=== PATIENT | male | born 1990 | race Caucasian/White ===

== ENCOUNTER 2021-02-14 17:44 | Emergency (ER) | payer MEDICAID, SELFPAY ==
[2021-02-14 17:58] VITALS: BP 131/80; PULSE 92; RESP 20; TEMP 36.8; O2SAT 100
--- NOTE | 2021-02-14 20:07 | ED.GENADULT ---
HPI - General Adult General Chief complaint: Unspecified Stated complaint: blood in semen Time Seen by Provider: 02/14/21 19:33 History of Present Illness HPI narrative: 30-year-old male presents to the emergency department for evaluation of blood in his semen. Patient states over the last few weeks four times he has had blood in his semen. Patient does report some difficulty starting urination. Patient denies any incontinence of stool. Patient is sexually active. Patient denies any pain with urination. Patient denies any other penile discharge Related Data Allergies Allergy/AdvReac Type Severity Reaction Status Date / Time cefaclor [From [facility]] Allergy Hives Verified 02/14/21 19:24 Sulfa (Sulfonamide Allergy Hives Verified 02/14/21 19:24 Antibiotics) Review of Systems Review of Systems: CONSTITUTIONAL: Denies fever, chills, or sweats. EYES: Denies visual changes, redness, or discharge. ENT: Denies rhinorrhea, congestion, sore throat, or otalgia. CARDIOVASCULAR: Denies chest pain, palpitations, or edema. RESPIRATORY: Denies cough or dyspnea. GASTROINTESTINAL: Denies abdominal pain, nausea, vomiting, or diarrhea. GENITOURINARY: Hematospermia SKIN: Denies rash or itching. MUSCULOSKELETAL: Denies back pain, joint pain, or myalgia. NEUROLOGIC: Denies headache, numbness, or weakness. PSYCHIATRIC: Denies anxiety or depression. Exam Narrative: APPEARANCE: Well appearing, no pain in distress, well-nourished. HEAD: normocephalic, atraumatic. EYES: PERRLA/EOMI, conjunctivae clear. NOSE: Normal no drainage EARS:TMS clear with good light reflex. THROAT: Pharynx clear, no exudate. NECK: Supple. No adenopathy, no masses. RESPIRATORY: Airway patent, respirations nonlabored. Clear to auscultation bilaterally, no rales, rhonchi, wheezing. CARDIOVASCULAR: Regular rate and rhythm without murmurs rubs or gallops. ABDOMINAL: Soft, nondistended, normal bowel sounds MUSCULOSKELETAL: Moves all extremities. Strength/ROM intact, No edema, No calf tenderness. Genitourinary: Normal penis and testicular exam. No tenderness, no swelling, NEURO: Alert. Cranial nerves II through XII intact. Good gait. Good coordination SKIN: Warm, dry. Normal Color PSYCHIATRIC: Normal affect/mood. Course Vital Signs Vital signs: Vital Signs Temperature 98.2 F 02/14/21 17:58 Pulse Rate 92 02/14/21 17:58 Respiratory Rate 20 02/14/21 17:58 Blood Pressure 131/80 02/14/21 17:58 Pulse Oximetry 100 02/14/21 17:58 Temperature 98.2 F 02/14/21 17:58 Pulse Rate 92 02/14/21 17:58 Respiratory Rate 20 02/14/21 17:58 Blood Pressure 131/80 02/14/21 17:58 Pulse Oximetry 100 02/14/21 17:58 Medical Decision Making MDM Narrative Medical decision making narrative: Patient has a benign abdominal exam. UA is well-appearing. Suspect prostatitis. GC chlamydia is pending off of the urine. Treating patient with Cipro for prostatitis. Patient was updated on the treatment plan and the importance having follow-up with a primary care physician and ultimately with urology. Patient also educated on reasons to return to the emergency department. All questions concerns were addressed. Patient was in no distress at time of discharge from the emergency department. Differential Diagnosis Differential Diagnosis: Prostatitis, STI, UTI Vital Signs Vital Signs: Vital Signs Temperature 98.2 F 02/14/21 17:58 Pulse Rate 92 02/14/21 17:58 Respiratory Rate 20 02/14/21 17:58 Blood Pressure 131/80 02/14/21 17:58 Pulse Oximetry 100 02/14/21 17:58 Temperature 98.2 F 02/14/21 17:58 Pulse Rate 92 02/14/21 17:58 Respiratory Rate 20 02/14/21 17:58 Blood Pressure 131/80 02/14/21 17:58 Pulse Oximetry 100 02/14/21 17:58 Lab Data Lab results reviewed: Yes I reviewed the patient's lab results. Labs: Lab Results 02/14/21 02/14/21 Range/Units 20:17 20:22 Urine Color Yellow (Yellow) Urine Appearance Clear
[2021-02-14] MEDS: CIPROFLOXACIN 500 MG TAB PO (20:23)
[2021-02-14 20:37] LABS: Add Urine Microscopic? NO; Appearance Urine Clear (Clear); Bilirubin Urine Negative (Negative); Blood Urine Negative (Negative); Color Urine Yellow (Yellow); Glucose Urine UA Negative (Negative); Ketones Urine Negative (Negative); Leukocyte Esterase Ur Negative LEU/UL (Negative); Nitrate Urine Negative (Negative); Protein Urine Negative (Negative); Specific Grav Ur 1.016 (1.001-1.035); Urobilinogen Urine Negative mg/dL (<2.0)
== END 2021-02-14 21:12 | disposition home or self-care (01) ==
PROVIDERS: Emergency Provider Emergency Medicine
DX: R36.1 Hematospermia (principal); N41.9 Inflammatory disease of prostate, unspecified
CPT/HCPCS: 81003; 87491; 87591; 99283; A9270

== ENCOUNTER 2021-03-04 18:24 | Emergency (ER) | payer MEDICAID, SELFPAY ==
--- NOTE | ~2021-03-04 | CT_ITS ---
EXAMINATION: CT abdomen pelvis w con DATE: 03/04/2021 23:22 INDICATION: Low abdominal pain. TECHNIQUE: Computed tomography (CT) of the abdomen and pelvis was performed with 100 mL Omnipaque 350 intravenous contrast. Automated exposure control and iterative reconstruction technique were employe d. The dose-length product was 244.23 mGy-cm. COMPARISON: None. FINDINGS: The visualized portions of the lung bases are clear without pneumonia or pleural effusion. The heart size is normal. No pleural effusion. The liver, gallbladder, spleen, pancreas, and adrenal glands are normal. There are cysts in the kidneys measuring up to 2.4 cm on the right. There are no d ilated loops of bowel. There are changes of appendectomy. There are no pathologically enlarged lymph nodes. There is no free intraperitoneal fluid. There is an old healed fracture of right ischial tuber osity. IMPRESSION: 1. No etiology for the patient's symptoms. Reviewed, dictated and finalized at location A. MICIST
[2021-03-04 18:27] VITALS: BP 135/77; PULSE 116; RESP 16; TEMP 36.4; O2SAT 100
[2021-03-04 21:00] LABS: Basophils Absolute Auto 0.1 K/mm3 (0.0-0.1); Basophils Percent Auto 0.8 % (0.2-1.2); Eosinophils Absolute Auto 0.2 K/mm3 (0-0.3); Eosinophils Percent Auto 1.5 % (0-4.4); Hematocrit 41.3 % (42.0-52.0); Hemoglobin 13.8 g/dL (14.0-18.0); Immature Granulocyte Absolute 0.05 K/mm3 (0.00-0.031); Immature Granulocyte Percent A 0.4 % (0-0.5); Lymphocytes Absolute Auto 2.29 K/mm3 (0.9-3.2); Lymphocytes Percent Auto 20.5 % (18.3-44.2); Mean Corpuscular HGB Conc 33.4 g/dl (32-36); Mean Corpuscular Hemoglobin 29.2 pg (26-34); Mean Corpuscular Volume 87.5 fl (80-100); Mean Platelet Volume 9.7 fl (7.4-10.4); Monocytes Absolute Auto 0.9 K/mm3 (0.1-0.6); Monocytes Percent Auto 8.3 % (2.6-8.5); Neutrophils Absolute Auto 7.7 K/mm3 (1.3-6.7); Neutrophils Percent Auto 68.5 % (45.5-73.1); Platelet Count Result 228 k/mm3 (150-375); Red Blood Count 4.72 M/mm3 (4.6-6.20); Red Cell Distribution Width 13.6 % (11.5-14.5); White Blood Count 11.2 K/mm3 (4.5-10.0)
--- NOTE | 2021-03-04 21:29 | ED.MALEGU ---
HPI - Male Genitourinary General Chief complaint: Urogenital-Male Stated complaint: fever, prostatitis Time Seen by Provider: 03/04/21 20:57 Source: patient, RN notes reviewed and old records reviewed Mode of arrival: ambulatory Limitations: no limitations History of Present Illness HPI Narrative: This is a 30 year old male who presents for evaluation of difficulty urinating and lower abdominal pressure. He was evaluated in ER 18 days ago for same complaint. He was discharge home with 1 week of Cipro and diagnosis of prostatitis. He states he noticed that he started developing fever 1 week ago. He reports having fever of 101F today at 2 pm, and he took ibuprofen with Tylenol at 3 pm. He has continued to have lower abdominal pain and pressure. He also reports inconsistent urination. He denies nausea and vomiting. He also denies back pain. He states he had penile discharge 18 days ago but that resolved. Related Data Home Medications Medication Instructions Recorded Confirmed diazepam TID 03/04/21 quetiapine 03/04/21 zolpidem 03/04/21 Allergies Allergy/AdvReac Type Severity Reaction Status Date / Time cefaclor [From [facility]] Allergy Hives Verified 03/04/21 21:55 Sulfa (Sulfonamide Allergy Hives Verified 03/04/21 21:55 Antibiotics) Review of Systems Review of Systems: All systems reviewed & are unremarkable except as noted in HPI and below PMFSH Surgical History Surgical History (Updated 03/05/21 @ 00:43 by Ashley Walters MD) History of appendectomy Social History Social History (Updated 03/05/21 @ 00:43 by Ashley Walters MD) Smoking status: Never smoker Exam Const: General: no acute distress and alert HENMT: Head: normocephalic and atraumatic Face and sinus: face symmetric Mouth: Yes Normal oral and palatal mucosa present, Yes lip normal, Yes oropharynx normal and Yes moist mucous membranes Eyes: EOM: EOMs intact bilaterally Chest: Chest palpation & inspection: normal inspection of the chest Resp: Effort & Inspection: normal respiratory effort and no retractions Auscultation: clear to auscultation bilaterally Cardio: Rate: regular rate Rhythm: regular rhythm Heart sounds: no murmurs GI: GI Palp: Yes Soft to palpation, Yes Tenderness to palpation present (GI) (suprapubic), No Guarding due to palpation present (GI) and No Rigid due to palpation Auscultation: normal bowel sounds : General: Yes no CVA tenderness Penis: Yes circumcised Scrotum: scrotum normal Testes: no testicular tenderness Back/Spine/Pelvis: Back: no CVA tenderness Skin: General skin exam: normal color Rashes: no rashes Neuro: General: patient oriented x3 and moves all extremities Cranial nerves: Yes Nystagmus not present Course Reevaluation(s) Reevaluation #1: I discussed with patient that even though cT is unremarkable he will be started on longer course for prostatitis and he will need to follow up with urologist. Date: 03/05/21 Time: 00:44 Vital Signs Vital signs: Vital Signs Temperature 97.5 F L 03/04/21 18:27 Pulse Rate 116 H 03/04/21 18:27 Respiratory Rate 16 03/04/21 18:27 Blood Pressure 135/77 03/04/21 18:27 Pulse Oximetry 100 03/04/21 18:27 Temperature 97.5 F L 03/04/21 18:27 Pulse Rate 73 03/05/21 00:08 Respiratory Rate 17 03/05/21 00:08 Blood Pressure 119/75 03/05/21 00:08 Pulse Oximetry 100 03/05/21 00:08 MDM - Male Genitourinary Lab Data Attestation: I reviewed the patient's lab results. Result diagrams: 03/04/21 20:52 03/04/21 21:49 Labs: Lab Results 03/04/21 03/04/21 03/04/21 Range/Units 20:52 21:49 21:49 WBC 11.2 H (4.5-10.0) K/mm3 RBC 4.72 (4.6-6.20) M/mm3 Hgb 13.8 L (14.0-18.0) g/dL Hct 41.3 L (42.0-52.0) % MCV 87.5 (80-100) fl MCH 29.2 (26-34) pg MCHC 33.4 (32-36) g/dl RDW 13.6 (11.5-14.5) % Plt Count 228 (150-375) k/mm3 MPV 9.7 (7
[2021-03-04 21:58] VITALS: BP 117/82; PULSE 81; RESP 18; O2SAT 100
[2021-03-04 22:01] LABS: Add Urine Microscopic? NO; Appearance Urine Clear (Clear); Bilirubin Urine Negative (Negative); Blood Urine Negative (Negative); Color Urine Yellow (Yellow); Glucose Urine UA Negative (Negative); Ketones Urine Negative (Negative); Leukocyte Esterase Ur Negative LEU/UL (Negative); Nitrate Urine Negative (Negative); Protein Urine Negative (Negative); Specific Grav Ur 1.017 (1.001-1.035); Urobilinogen Urine Negative mg/dL (<2.0)
[2021-03-04 22:10] LABS: Alanine Aminotransferase 17 U/L (4-50); Albumin Level 4.2 g/dL (3.5-5.1); Alkaline Phosphatase 46 U/L (38-126); Anion Gap 8 mmol/L (8-16); Aspartate Amino Transferase 25 U/L (17-59); Bilirubin,Total 0.4 mg/dL (0.2-1.3); Blood Urea Nitrogen 8 mg/dL (9-20); Calcium 8.7 mg/dL (8.4-10.2); Carbon Dioxide 26 mmol/L (22-30); Chloride 103 mmol/L (98-107); Estimated Glomerular Filt Rate > 60; Glucose 100 mg/dL (65-110); Potassium 3.6 mmol/L (3.4-5.0); Sodium 137 mmol/L (137-145)
--- NOTE | 2021-03-04 23:20 | PC.NURSE ---
Pt to CT scan via w/c.
[2021-03-05] MEDS: DOXYCYCLINE HYCLATE 100 MG TABLET PO (00:05)
[2021-03-05] MEDS: CIPROFLOXACIN 400 MG/D5W 200ML 200 ML 200 MG IVPB (00:06)
[2021-03-05 00:08] VITALS: BP 119/75; PULSE 73; RESP 17; O2SAT 100
== END 2021-03-05 00:58 | disposition home or self-care (01) ==
PROVIDERS: Emergency Medicine; Emergency Provider General Practice
DX: N41.9 Inflammatory disease of prostate, unspecified (principal)
CPT/HCPCS: 36415; 74177; 80053; 81003; 85025; 87086; 96365; 99284; A9270; J0744; Q9967

== ENCOUNTER 2023-08-14 12:13 | Emergency (ER) | payer BC, SELFPAY ==
[2023-08-14] VITALS (19 sets, daily range): BP systolic 116–121; BP diastolic 80–94; PULSE 81–109; RESP 12–22; TEMP 36.9; O2SAT 93–100
--- NOTE | ~2023-08-14 | XR_ITS ---
EXAMINATION: XR chest 2V DATE: 08/14/2023 12:47 INDICATION: Chest pain and left-sided tingling and shortness of breath TECHNIQUE: frontal and lateral views of the chest were obtained. COMPARISON: None FINDINGS: The lungs are clear with no focal airspace opacities, pulmonary edema, pleural effusion or pneumothor ax. The cardiomediastinal silhouette is normal. Visualized bones and soft tissues are unremarkable. IMPRESSION: 1. No acute cardiopulmonary disease. Reviewed, dictated and finalized at location A.
--- NOTE | 2023-08-14 12:18 | ECG_ITS ---
Test Date: 2023-08-14 12:21:37 Measurements Intervals [place] Rate: 105 P: 49 IA: 148 QRS: 41 QRSD: 97 T: 49 QT: 313 QTc: 414 Interpretive Statements SINUS TACHYCARDIA ABNORMAL RHYTHM ECG No previous ECG available for comparison Electronically Signed On 08-14-2023 16:18:32 CDT by Carlos Hernández M.D.
[2023-08-14 12:44] LABS: Basophils Absolute Auto 0.1 K/mm3 (0.0-0.1); Basophils Percent Auto 0.5 % (0.2-1.2); Eosinophils Percent Auto 0.1 % (0-4.4); Hematocrit 44.7 % (42.0-52.0); Hemoglobin 15.3 g/dL (14.0-18.0); Immature Granulocyte Absolute 0.11 K/mm3 (0.00-0.031); Immature Granulocyte Percent A 0.8 % (0-0.5); Lymphocytes Absolute Auto 1.82 K/mm3 (0.9-3.2); Lymphocytes Percent Auto 13.2 % (18.3-44.2); Mean Corpuscular HGB Conc 34.2 g/dl (32-36); Mean Corpuscular Hemoglobin 28.6 pg (26-34); Mean Corpuscular Volume 83.6 fl (80-100); Mean Platelet Volume 9.6 fl (7.4-10.4); Monocytes Absolute Auto 0.9 K/mm3 (0.1-0.6); Monocytes Percent Auto 6.3 % (2.6-8.5); Neutrophils Percent Auto 79.1 % (45.5-73.1); Platelet Count Result 333 k/mm3 (150-375); Red Blood Count 5.35 M/mm3 (4.6-6.20); Red Cell Distribution Width 13.3 % (11.5-14.5); White Blood Count 13.8 K/mm3 (4.5-10.0)
[2023-08-14 12:46] LABS: Prothrombin Time 13.8 Seconds (11.1-14.7)
[2023-08-14 12:47] LABS: Partial Thromboplastin Time 30.2 Seconds (22.3-36.8)
[2023-08-14] MEDS: ASPIRIN 81 MG CHEWABLE TABLET 324 MG PO (12:54)
[2023-08-14] MEDS: SODIUM CHLORIDE 0.9% IV 1,000 ML 999 ML IV CONT (12:55)
[2023-08-14 12:57] LABS: Alanine Aminotransferase 60 U/L (6-50); Alkaline Phosphatase 76 U/L (38-126); Anion Gap 11 mmol/L (4-12); Aspartate Amino Transferase 42 U/L (17-59); Bilirubin,Total 0.8 mg/dL (0.2-1.3); Blood Urea Nitrogen 11 mg/dL (9-20); Calcium 9.8 mg/dL (8.4-10.2); Carbon Dioxide 27 mmol/L (22-30); Chloride 103 mmol/L (98-107); Estimated CRCL calculation 82 ml/min; Estimated Glomerular Filt Rate > 60; Glucose 114 mg/dL (65-110); Lipase 30 U/L (23-300); Potassium 3.9 mmol/L (3.4-5.0); Sodium 141 mmol/L (137-145)
[2023-08-14 13:00] LABS: Troponin I < 0.012 ng/mL (0.000-0.034)
[2023-08-14 13:13] LABS: D Dimer < 0.27 ug/mL (<0.48)
--- NOTE | 2023-08-14 13:33 | ED.CHESTPAIN ---
HPI - Chest Pain General Chief Complaint: Chest Pain Stated Complaint: cp Time Seen by Provider: 08/14/23 12:18 History of Present Illness HPI narrative: 32-year-old male presenting to the emergency department for evaluation for increased anxiety and some left-sided chest pain. Patient's just delivered a [facility] and since then patient has had multiple panic attacks and has had multiple issues with hyperventilation. Patient does have history of panic attacks and does take Valium daily. Patient denies any prior cardiac history. Patient denies any prior history of PE or DVT. Related Data Home Medications Medication Instructions Recorded Confirmed diazepam 10 mg tablet TID 03/04/21 quetiapine 100 mg tablet 03/04/21 zolpidem 10 mg tablet 03/04/21 Allergies Allergy/AdvReac Type Severity Reaction Status Date / Time cefaclor [From [facility]] Allergy Hives Verified 08/14/23 12:22 Sulfa (Sulfonamide Allergy Hives Verified 08/14/23 12:22 Antibiotics) Review of Systems Review of Systems: All systems reviewed & are unremarkable except as noted in HPI and below PMFSH Surgical History Surgical History (Updated 03/05/21 @ 00:43 by Ashley Walters MD) History of appendectomy Social History Social History (Updated 03/05/21 @ 00:43 by Ashley Walters MD) Smoking status: Never smoker Exam Narrative: APPEARANCE: Well appearing, no pain, no distress, well-nourished. HEAD: normocephalic, atraumatic. EYES: PERRLA/EOMI, conjunctivae clear. NOSE: Normal no drainage EARS:TMS clear with good light reflex. THROAT: Pharynx clear, no exudate. NECK: Supple. No adenopathy, no masses. RESPIRATORY: Airway patent, respirations nonlabored. Clear to auscultation bilaterally, no rales, rhonchi, wheezing. CARDIOVASCULAR: Regular rate and rhythm without murmurs rubs or gallops. ABDOMINAL: Soft, nontender, nondistended, normal bowel sounds MUSCULOSKELETAL: Moves all extremities. Strength/ROM intact, No edema, No calf tenderness. NEURO: Alert. Cranial nerves II through XII intact. Grossly intact SKIN: Warm, dry. Normal Color PSYCHIATRIC: Anxious affect Course Course Emergency Course: Patient felt improved with medication and patient was discharged to with instructions for close follow-up with primary care physician Vital Signs Vital signs: Vital Signs Temperature 98.4 F 08/14/23 12:18 Pulse Rate 101 H 08/14/23 12:18 Respiratory Rate 16 08/14/23 12:18 Blood Pressure 121/94 H 08/14/23 12:18 Pulse Oximetry 100 08/14/23 12:18 Oxygen Delivery Room Air 08/14/23 12:18 Temperature 98.4 F 08/14/23 12:18 Pulse Rate 81 08/14/23 16:20 Respiratory Rate 17 08/14/23 16:20 Blood Pressure 116/80 08/14/23 16:20 Pulse Oximetry 100 08/14/23 16:20 Oxygen Delivery Room Air 08/14/23 12:23 MDM - Chest Pain MDM Narrative Medical decision making narrative: 32-year-old male presenting to the emergency department for evaluation for intermittent left-sided chest pain associated with anxiety. Patient is resting more comfortably. Patient is afebrile but does have a leukocytosis of 13.8 a stable hemoglobin of 15.3. Patient has no acute abnormalities on his CMP patient's D-dimer was negative. Patient's initial troponin was negative and patient's chest x-ray shows no acute cardiopulmonary abnormality. EKG shows normal sinus rhythm with no evidence of acute STEMI. Patient did request medication for anxiety control. Patient's repeat troponin was negative. Patient was updated on the results of the workup encouraged close follow-up with primary care physician. All questions concerns were addressed. Differential Diagnosis Differential diagnosis: Likely stable angina, unstable angina pectoris, atypical chest pain, chest pain and other Lab Data Attestation: I reviewed the patient's lab results. 08/14/23 12:26 08/14/23 12:26 Labs: Lab Results 08/14/23 06
--- NOTE | 2023-08-14 15:30 | ECG_ITS ---
Test Date: 2023-08-14 15:35:29 Measurements Intervals [place] Rate: 73 P: 44 [place]: 160 QRS: 45 QRSD: 102 T: 57 QT: 336 QTc: 372 Interpretive Statements SINUS RHYTHM WITH MARKED SINUS ARRHYTHMIA BASELINE ARTIFACT- I, II, III, AVR, AVL, AVF NORMAL ECG Compared to ECG 08/14/2023 12:21:37 Sinus tachycardia no longer present Electronically Signed On 08-15-2023 15:23:24 CDT by Ilya Robles D.O.
[2023-08-14 16:01] LABS: Troponin I < 0.012 ng/mL (0.000-0.034)
[2023-08-14] MEDS: LORazepam INJ (*CRX) 2 MG/ML VIAL 1 MG IV PUSH (16:11)
== END 2023-08-14 16:22 | disposition home or self-care (01) ==
PROVIDERS: Emergency Provider Emergency Medicine
DX: R07.9 Chest pain, unspecified (principal); F41.9 Anxiety disorder, unspecified; Z79.899 Other long term (current) drug therapy; R00.0 Tachycardia, unspecified
CPT/HCPCS: 36415; 71046; 80053; 83690; 84484; 85025; 85380; 85610; 85730; 93005; 96361; 96374; 99284; A9270; J2060; J7030